=== PATIENT | female | born 1930 | race Caucasian/White ===

== ENCOUNTER 2016-12-20 12:50 | Inpatient (IN) | payer OTHER ==
[~2016-12-20] VITALS: Ht 170.2 cm; Wt 51.3 kg
--- NOTE | ~2016-12-20 | EKG ---
[place] [address] [facility] [place] [address] ELECTROCARDIOGRAM REPORT Name: ALEJANDRINA BELL Room #: 304-P ADM IN M.R.#: [id number] Admission: 12/20/16 Attend Phys: Reji Nichols DO Discharge: Date of : 30 Report #: [id number] THIS REPORT FOR: //name// [facility] ED Test Date: 2016-12-20 Test Time: 13:59:01 Pat Name: ALEJANDRINA BELL Department: Room: [facility] Gender: F Rig Operator: [id number] : 1930 Requested By: Micheal Jackson Order Number: [id number] MD: Stuart Casas Measurements Intervals [place] Rate: 64 P: 44 [place]: 190 QRS: -21 QRSD: 104 T: 29 QT: 459 QTc: 474 Interpretive Statements Sinus rhythm Borderline left axis deviation No previous ECG available for comparison Electronically Signed On 12-21-2016 7:56:09 CDT by Stuart Casas [email or web address] <ELECTRONICALLY SIGNED> By: Stuart Casas MD, [facility] 12/21/16 [id number] Stuart Casas MD, FACC /EPI
[2016-12-20 12:51] VITALS: BP 171/65
[2016-12-20] MEDS ORDERED: LOPRESSOR50 PO (13:20)
[2016-12-20 14:18] LABS: HEMATOCRIT 36.4 % (37.0-47.0); HEMOGLOBIN 12.1 gm/dL (12.0-15.0); MCH 30.7 pg (26.0-34.0); MCHC 33.2 g/dL (28.0-37.0); MCV 92.4 fL (80.0-100.0); RBC 3.94 mil/uL (4.20-5.00); RDW 12.9 % (10.5-14.5); WBC 11.3 thou/uL (4.0-11.0)
[2016-12-20 14:23] LABS: CALCIUM 9.8 mg/dL (8.5-10.1); CREATININE 2.6 mg/dL (0.6-1.0)
[2016-12-20 14:46] LABS: URINE BILIRUBIN NEGATIVE (Negative); URINE BLOOD TRACE (Negative); URINE COLOR YELLOW; URINE GLUCOSE-RANDOM* NEGATIVE (Negative); URINE KETONES NEGATIVE (Negative); URINE PROTEIN (DIPSTICK) NEGATIVE (Negative); URINE UROBILINOGEN 0.2 E.U./dl (0.2-1.0)
[2016-12-20 14:53] LABS: URINE LEUKOCYTES-REFLEX 1+ (Negative)
[2016-12-20 15:22] LABS: CASTS None Seen /LPF (None Seen); CRYSTALS None Seen /LPF (None Seen); SQUAMOUS 4-10 Moderate /LPF (0-3); URINE RBC 0-2 Rare /HPF (0-2)
[2016-12-20 15:23] LABS: URINE WBC-REFLEX 0-5 Rare /HPF (0-5)
[2016-12-20 17:12] VITALS: BP 131/53
[2016-12-20 17:20] VITALS: BP 150/67
[2016-12-20 19:30] VITALS: BP 162/66
[2016-12-21 01:38] VITALS: BP 139/53
[2016-12-21 03:50] VITALS: BP 128/63
[2016-12-21 06:37] LABS: HEMATOCRIT 33.2 % (37.0-47.0); MCH 30.5 pg (26.0-34.0); MCV 92.2 fL (80.0-100.0); PLATELET COUNT 215 thou/uL (150-400); RDW 12.9 % (10.5-14.5); WBC 8.9 thou/uL (4.0-11.0)
[2016-12-21 06:38] LABS: MANUAL DIFF YES
[2016-12-21 06:49] LABS: CALCIUM 8.5 mg/dL (8.5-10.1); CREATININE 1.8 mg/dL (0.6-1.0); POTASSIUM 4.3 mmol/L (3.5-5.1)
[2016-12-21 07:16] VITALS: BP 145/62
[2016-12-21 09:48] LABS: ABSOLUTE NEUTROPHILS 6.8 thou/uL (1.4-8.2); TOTAL CELL COUNT 100
[2016-12-21 15:37] VITALS: BP 158/71
[2016-12-21 18:32] VITALS: BP 138/59
[2016-12-21 20:00] VITALS: BP 141/61
[2016-12-22 03:26] VITALS: BP 124/66
[2016-12-22 07:55] VITALS: BP 154/76
[2016-12-22 16:51] VITALS: BP 171/64
[2016-12-22 19:40] VITALS: BP 168/77
[2016-12-22 23:10] VITALS: BP 170/78
[2016-12-23 03:45] VITALS: BP 159/76
[2016-12-23 04:06] LABS: HEMATOCRIT 31.1 % (37.0-47.0); HEMOGLOBIN 10.5 gm/dL (12.0-15.0); MCH 30.9 pg (26.0-34.0); MCHC 33.6 g/dL (28.0-37.0); MCV 92.2 fL (80.0-100.0); PLATELET COUNT 208 thou/uL (150-400); RBC 3.38 mil/uL (4.20-5.00); WBC 8.3 thou/uL (4.0-11.0)
[2016-12-23 04:13] LABS: CALCIUM 8.5 mg/dL (8.5-10.1); CREATININE 1.2 mg/dL (0.6-1.0); MANUAL DIFF YES; POTASSIUM 4.3 mmol/L (3.5-5.1)
[2016-12-23 06:48] LABS: ABSOLUTE NEUTROPHILS 6.1 thou/uL (1.4-8.2); TOTAL CELL COUNT 100
[2016-12-23 06:50] LABS: ANISOCYTOSIS SLIGHT
[2016-12-23 07:50] VITALS: BP 167/78
[2016-12-23] MEDS ORDERED: KEFLEX500 MG PO (09:40)
== END 2016-12-23 15:14 | DRG 682 ==
LOC: ER 12:50 → EROBS 16:34 → 3N 16:34
PROVIDERS: Emergency Medicine; Family Medicine
DX: N17.9 Acute kidney failure, unspecified (principal); J18.9 Pneumonia, unspecified organism; N39.0 Urinary tract infection, site not specified; I10 Essential (primary) hypertension; F03.90 Unspecified dementia, unspecified severity, without behavioral disturbance, psychotic disturbance, mood disturbance, and anxiety; B96.20 Unspecified Escherichia coli [E. coli] as the cause of diseases classified elsewhere; W18.39XA Other fall on same level, initial encounter; Y93.89 Activity, other specified; Y92.098 Other place in other non-institutional residence as the place of occurrence of the external cause; Y99.8 Other external cause status
CPT/HCPCS: 10094